=== PATIENT | male | born 1940 | race Caucasian/White ===

== ENCOUNTER 2020-04-25 17:03 | Emergency (ER) | payer MEDICARE, BC ==
[~2020-04-25] VITALS: Ht 175.3 cm; Wt 99.8 kg
[~2020-04-25 17:03] MED LIST: Aspirin EC81 MG; BISHYD2.5 PO; Multiple Vitam1 EAC1 PO; Simvastatin20 MG PO
[2020-04-25 17:33] LABS: BASOPHILS ABSOLUTE AUTO 0.04 K/mm3 (0.00-0.23); BASOPHILS PERCENT AUTO 1 % (0-2); EOSINOPHILS ABSOLUTE AUTO 0.18 K/mm3 (0.00-0.68); EOSINOPHILS PERCENT AUTO 2 % (0-6); Hematocrit 45.9 % (37.0-53.0); Hemoglobin 15.3 g/dL (13.5-17.5); IMMATURE GRAN ABSOLUTE AUTO 0.06 K/mm3 (0.00-0.10); IMMATURE GRAN PERCENT AUTO 1 % (0-1); LYMPHOCYTES ABSOLUTE AUTO 2.15 K/mm3 (0.84-5.20); LYMPHOCYTES PERCENT AUTO 25 % (21-46); MONOCYTES ABSOLUTE AUTO 0.91 K/mm3 (0.16-1.47); MONOCYTES PERCENT AUTO 11 % (4-13); Mean Corpuscular HGB 32.1 pg (26.0-34.0); Mean Corpuscular HGB Conc 33.3 g/dL (31.5-36.5); Mean Corpuscular Volume 96 fL (80-100); Mean Platelet Volume 9.4 fL (9.1-12.4); NEUTROPHILS PERCENT AUTO 61 % (41-73); Platelet Count 266 K/mm3 (150-400); RDW Coefficient Variation 13.1 % (11.7-14.2); RDW Standard Deviation 47.1 fL (35.1-46.3); Red Blood Cell Count 4.77 M/mm3 (4.30-5.90); White Blood Cell Count 8.54 K/mm3 (4.00-11.30)
[2020-04-25 18:01] LABS: Troponin I <0.015 ng/mL (0.000-0.040)
[2020-04-25 18:02] LABS: Alanine Aminotransfer (ALT/SGP 38 U/L (12-78); Albumin, Blood 4.1 g/dL (3.4-5.0); Alk Phos 60 U/L (50-136); Anion Gap 6 mmol/L (6-16); Aspartate Aminotrans (AST/SGOT 22 U/L (12-37); Bilirubin, Total 0.7 mg/dL (0.1-1.0); Blood Urea Nitrogen 17 mg/dL (8-24); CO2, Blood 27 mmol/L (21-32); Calcium, Blood 9.1 mg/dL (8.5-10.1); Chloride, Blood 109 mmol/L (98-108); Creatinine, Blood 1.06 mg/dL (0.60-1.20); Glomerular Filtration Rate >60 (60-); Glucose, Blood 89 mg/dL (70-99); Potassium, Blood 3.9 mmol/L (3.5-5.5); Sodium, Blood 142 mmol/L (136-145); Total Protein, Blood 8.1 g/dL (6.4-8.2)
== END 2020-04-25 18:35 | disposition home or self-care (01) ==
LOC: ER 17:03
PROVIDERS: Physician Assistant
DX: I10 Essential (primary) hypertension (principal); Z88.2 Allergy status to sulfonamides; Z79.899 Other long term (current) drug therapy
CPT/HCPCS: 36415; 71046; 80053; 84484; 85025; 93005; 93010; 99284-25

== ENCOUNTER 2020-08-08 13:19 | Day surgery (SDC) | payer MEDICARE, BC ==
[~2020-08-08] VITALS: Ht 172.7 cm; Wt 96.6 kg
== END 2020-08-08 15:15 | disposition home or self-care (01) ==
LOC: ORSCSDS 13:19
PROVIDERS: Internal Medicine Gastroenterology
PROC: 0DBM8ZX Excision of Descending Colon, Via Natural or Artificial Opening Endoscopic, Diagnostic (ICD-10-PCS; principal; 2020-08-08 14:45)
DX: Z12.11 Encounter for screening for malignant neoplasm of colon (principal); D12.4 Benign neoplasm of descending colon; K57.30 Diverticulosis of large intestine without perforation or abscess without bleeding; K64.8 Other hemorrhoids; Z86.010 Personal history of colon polyps
CPT/HCPCS: 88305; J2704; J7120

== ENCOUNTER 2024-01-25 08:56 | Observation (INO) | payer MEDICARE, BC ==
[~2024-01-25] VITALS: Ht 175.3 cm; Wt 101.1 kg
[2024-01-25] MEDS ORDERED: BISOPROLOL-HCT1 EACH PO (09:24)
[2024-01-25] MEDS ORDERED: LOSARTAN POTASS25 M2 PO (09:24)
[2024-01-25 09:44] LABS: BASOPHILS ABSOLUTE AUTO 0.01 K/mm3 (0.00-0.23); BASOPHILS PERCENT AUTO 0 % (0-2); EOSINOPHILS ABSOLUTE AUTO 0.08 K/mm3 (0.00-0.68); EOSINOPHILS PERCENT AUTO 1 % (0-6); Hematocrit 41.4 % (37.0-53.0); Hemoglobin 14.6 g/dL (13.5-17.5); IMMATURE GRAN ABSOLUTE AUTO 0.05 K/mm3 (0.00-0.10); IMMATURE GRAN PERCENT AUTO 1 % (0-1); LYMPHOCYTES ABSOLUTE AUTO 1.39 K/mm3 (0.84-5.20); LYMPHOCYTES PERCENT AUTO 17 % (21-46); MONOCYTES ABSOLUTE AUTO 0.68 K/mm3 (0.16-1.47); MONOCYTES PERCENT AUTO 8 % (4-13); Mean Corpuscular HGB 32.5 pg (26.0-34.0); Mean Corpuscular HGB Conc 35.3 g/dL (31.5-36.5); Mean Corpuscular Volume 92 fL (80-100); Mean Platelet Volume 9.4 fL (9.1-12.4); NEUTROPHILS ABSOLUTE AUTO 5.85 K/mm3 (1.96-9.15); NEUTROPHILS PERCENT AUTO 73 % (41-73); Platelet Count 240 K/mm3 (150-400); RDW Coefficient Variation 12.9 % (11.7-14.2); RDW Standard Deviation 43.6 fL (35.1-46.3); Red Blood Cell Count 4.49 M/mm3 (4.30-5.90); White Blood Cell Count 8.06 K/mm3 (4.00-11.30)
[2024-01-25 10:01] LABS: Albumin, Blood 3.9 g/dL (3.4-5.0); Bilirubin, Total 1.3 mg/dL (0.1-1.0); Bun/Creatinine Ratio 16.7 (12.0-20.0); Calcium, Blood 8.7 mg/dL (8.5-10.1); Creatinine, Blood 0.96 mg/dL (0.60-1.20); Globulin, Blood 3.9 g/dL (2.2-4.0); Magnesium, Blood 1.8 mg/dL (1.6-2.4); Potassium, Blood 3.2 mmol/L (3.5-5.5); Total Protein, Blood 7.8 g/dL (6.4-8.2)
[2024-01-25] MEDS ORDERED: Potassium Chl 20MEQ/Water100ML 100 ML IV ONE (10:20)
[2024-01-25] MEDS ORDERED: NS 1,000 ML IV SCH (10:25)
[2024-01-25] MEDS ORDERED: FLU VACC TS2024-25(6MOS UP)/PF 45 MCG/0.5 ML SYRINGE IM ONE (13:00)
[2024-01-25] MEDS ORDERED: Ondansetron HCl 2 MG / ML 2ML Vial IV PRN (13:00)
[2024-01-25] MEDS ORDERED: Acetaminophen 325 MG TABLET PO PRN (13:05)
[2024-01-25 15:37] VITALS: BP 176/72
--- NOTE | 2024-01-25 16:37 | NUR ---
ADMISSION NOTE MR NAVARRETE WAS ADMITTED FROM ER TO MEDICAL UNIT AT 1530HRS. HE AMBULATED INTO BED WITH STEADY GAIT. HE IS ORIENTATED TO SELF, PLACE AND SITUATION BUT UNABLE TO TELL ME THE YEAR. HE SAID HE'S BEEN FEELING FORGETFUL FOR ABOUT 5 DAYS. ABLE TO AMSWER MOST QUESTIONS APPROPRIATELY BUT HE SAID HE'S BEEN FORGETTING SOME BASIC THINGS AT HOME. HE SAID HE USUALLY HAS CALIGRAPHY-LIKE PENMANSHIP BUT THAT HIS WRITING IS NOW BARELY LEGIBLE. CHRONIC LEFT FACIAL DROOP, NO WEAKESS TO HANDS OR FEET NOTICED ON EVALUATION. HE SAID HIS STRENGTH FEELS NORMAL AND STRONG. 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 TELEMETRY ON - NSR 60S. HE PASSED THE BEDSIDE SWALLOW EVALUATION WITHOUT PROBLEMS. HE IS UNABLE TO REMEMBER HIS MEDICATIONS, HIS DAUGHTER IS HERE AND SAID SHE WILL CALL WITH HIS MEDICATION LIST ONCE SHE IS HOME. MR NAVARRETE DENIES ANY PAIN. NO SOB. BED LOW, CALL LIGHT IN REACH.
[2024-01-25] MEDS ORDERED: Aspirin 325 MG Tab PO SCH (18:00)
[2024-01-25 19:20] VITALS: BP 164/70
[2024-01-25] MEDS ORDERED: Atorvastatin 40 MG Tab PO SCH (21:00)
[2024-01-26 05:06] VITALS: BP 167/82
[2024-01-26 05:34] LABS: BASOPHILS ABSOLUTE AUTO 0.03 K/mm3 (0.00-0.23); BASOPHILS PERCENT AUTO 0 % (0-2); EOSINOPHILS ABSOLUTE AUTO 0.16 K/mm3 (0.00-0.68); EOSINOPHILS PERCENT AUTO 2 % (0-6); Hematocrit 40.2 % (37.0-53.0); Hemoglobin 13.9 g/dL (13.5-17.5); IMMATURE GRAN ABSOLUTE AUTO 0.06 K/mm3 (0.00-0.10); IMMATURE GRAN PERCENT AUTO 1 % (0-1); LYMPHOCYTES ABSOLUTE AUTO 1.54 K/mm3 (0.84-5.20); LYMPHOCYTES PERCENT AUTO 21 % (21-46); MONOCYTES ABSOLUTE AUTO 0.71 K/mm3 (0.16-1.47); MONOCYTES PERCENT AUTO 10 % (4-13); Mean Corpuscular HGB 32.2 pg (26.0-34.0); Mean Corpuscular HGB Conc 34.6 g/dL (31.5-36.5); Mean Corpuscular Volume 93 fL (80-100); Mean Platelet Volume 9.4 fL (9.1-12.4); NEUTROPHILS ABSOLUTE AUTO 4.72 K/mm3 (1.96-9.15); NEUTROPHILS PERCENT AUTO 66 % (41-73); Platelet Count 230 K/mm3 (150-400); RDW Coefficient Variation 12.8 % (11.7-14.2); Red Blood Cell Count 4.32 M/mm3 (4.30-5.90); White Blood Cell Count 7.22 K/mm3 (4.00-11.30)
--- NOTE | 2024-01-26 05:39 | NUR ---
SHIFT SUMMARY PT RECEPTIVE TO CARE AND INDEPENDANT. ABLE TO AMBULATE TO BATHROOM URINAL. PT TOOK HS MEDICATIONS. ALERT AND ORIENTED TIMES 4. HE DOES HAVE BOUTS WITH MEMORY LOSS AND WAS ADMITTED FOR CVA. PT IS RECEPTIVE TO CARE. PT APPEARED TO SLEEP THROUGH THE NIGHT. TELE NORMAL SINUS MID 70 S. CALL LIGHT WITHIN REACH, RAILS TIMES 2.
[2024-01-26 05:57] LABS: Very Low Density Lipoprot Chol 30 mg/dL (6-32)
[2024-01-26 06:01] LABS: Anion Gap 11 mmol/L (3-11); Blood Urea Nitrogen 16 mg/dL (8-24); Bun/Creatinine Ratio 17.9 (12.0-20.0); CHOL/HDL RATIO 3.7; CO2, Blood 23 mmol/L (21-32); Calcium, Blood 8.6 mg/dL (8.5-10.1); Chloride, Blood 109 mmol/L (98-108); Cholesterol 159 mg/dL (50-200); Creatinine, Blood 0.89 mg/dL (0.60-1.20); Glomerular Filtration Rate 84 (60-); Glucose, Blood 104 mg/dL (70-99); HDL Cholesterol 43 mg/dL (>39); Low Density Lipoprotein Chol 86 mg/dL (0-110); Potassium, Blood 3.2 mmol/L (3.5-5.5); Sodium, Blood 140 mmol/L (136-145); Triglycerides 151 mg/dL (30-160)
[2024-01-26 07:02] VITALS: BP 164/73
[2024-01-26] MEDS ORDERED: Enoxaparin 40 MG/0.4 ML SYR SC SCH (09:00)
[2024-01-26] MEDS ORDERED: HydroCHLOROthiazide 25 mg Tab PO SCH (09:00)
[2024-01-26] MEDS ORDERED: Aspirin 325 MG Tab PO SCH (09:00)
[2024-01-26] MEDS ORDERED: Multivitamins/Minerals TAB PO SCH (09:00)
[2024-01-26] MEDS ORDERED: Losartan Potassium 25 MG Tab PO SCH (09:00)
[2024-01-26] MEDS ORDERED: Metoprolol Succinate 50 MG TABCR PO SCH (09:00)
[2024-01-26 09:33] VITALS: BP 149/73
--- NOTE | 2024-01-26 09:42 | NUR ---
CALL CALL FROM [facility] THAT PT CONVERTED TO AFIB AT 0800HRS WITH HR 110+. PT DENIES HISTORY OF AFIB, HR 90S ON ASSESSMENT, GIVEN AM MEDICATIONS. DR LONG NOTIFIED.
[2024-01-26] MEDS ORDERED: Apixaban 5 MG Tab PO SCH (10:00)
[2024-01-26] MEDS ORDERED: Potassium Chloride 20 MEQ TabCR PO ONE (10:00)
[2024-01-26] MEDS ORDERED: Metoprolol Succinate 50 MG TABCR PO ONE (10:00)
[2024-01-26 10:20] LABS: Magnesium, Blood 1.9 mg/dL (1.6-2.4)
[2024-01-26 10:22] LABS: Thyroid Stimulating Hormone 2.79 uIU/mL (0.360-4.800)
[2024-01-26] MEDS ORDERED: Acetaminophen650 M1 PO (10:59)
[2024-01-26] MEDS ORDERED: ELIQUIS5 M2 PO (10:59)
[2024-01-26] MEDS ORDERED: POTA10T PO (13:39)
--- NOTE | 2024-01-26 14:23 | NUR ---
DISCHARGE NOTE MR NAVARRETE HAS NO CHANGE IN NEURO STATUS. STRONG LIMBS, STEADY GAIT, POOR MEMORY FOR SOME SIMPLE ACTIVITIES AND FORGETS THE DATE. HE AND HIS DAUGHTER VERBALISED UNDERSTANDING OF DISCHARGE INSTRUCTIONS, HIS DAUGHTER PICKED UP THE PRESCRIPTIONS THAT HE NEEDS TO TAKE TODAY. THEY WERE ADVISED THAT MR NAVARRETE DOES NOT DRIVE UNTIL HE HAS BEEN CLEARED BY HIS PCP. IN AFIB ON TELEMETRY THIS MORNING UNTIL CONVERTED BACK TO NSR PER SHOE PULLER. MR NAVARRETE AMBULATED FROM THE MEDICAL UNIT FOR DISCHARGE WITH HIS DAUGHTER AT 1425HRS. NO NEW CONCERS OR QUESTIONS AT TIME OF DISCHARGE. PIV AND TELEMETRY REMOVED.
[2024-01-27] MEDS ORDERED: Metoprolol Succinate 50 MG TABCR PO SCH (09:00)
== END 2024-01-26 14:25 | disposition home or self-care (01) ==
LOC: ER 08:56 → MEDS 08:57 → ENPENDDIS 01-26 14:06 → MEDS 01-26 14:25
PROVIDERS: Internal Medicine; Physician Assistant; ADMIT Internal Medicine
DX: I63.9 Cerebral infarction, unspecified (principal); E87.6 Hypokalemia; I48.91 Unspecified atrial fibrillation; G51.0 Bell's palsy; I12.9 Hypertensive chronic kidney disease with stage 1 through stage 4 chronic kidney disease, or unspecified chronic kidney disease; N18.2 Chronic kidney disease, stage 2 (mild); E78.5 Hyperlipidemia, unspecified; Z66 Do not resuscitate; Z88.2 Allergy status to sulfonamides; Z79.01 Long term (current) use of anticoagulants; Z79.899 Other long term (current) drug therapy
CPT/HCPCS: 36415; 70450; 80048; 80053; 80061; 83036; 83735; 84443; 85025; 93005; 93010; 93306; 93880; 96361; 96365-59; 96366; 97161; 99285-25; A9270; G0378; J3480; J7030

== ENCOUNTER 2025-02-18 12:39 | Day surgery (SDC) | payer MEDICARE, BC ==
[~2025-02-18] VITALS: Ht 172.7 cm; Wt 105.4 kg
[~2025-02-18 12:39] MED LIST changes: +Acetaminophen650 M1 PO; +BISOPROLOL-HCT1 EACH PO; +Balanced Salt Epinephrine Irrigation Solution 500 mL IR SCH; +ELIQUIS5 M2 PO; +LOSARTAN POTASS25 M2 PO; +Moxifloxacin HCL 0.5 MG/0.1 ML 0.4MLSYR LEFTEYE SCH; +NS 500 ML IV ONE; +PHENYLEPHRINE\\TROPICAMIDE\\TETRACAINE OPHTHALMIC DILATING SOLN LEFTEYE PRN; +POTA10T PO; +Povidone-Iodine 450 DROP/30 ML Solution LEFTEYE SCH; +Povidone-Iodine 450 DROP/30 ML Solution ONE; +Tetracaine HCl/Pf 0.5% Opth Soln 4 ml ONE; +Triamcinolone Inj Susp 40 MG / ML 1ML Vial INJ SCH; +Triamcinolone Inj Susp 40 MG / ML 1ML Vial ONE
[2025-02-18] MEDS ORDERED: NS 500 ML IV ONE (13:19)
[2025-02-18] MEDS ORDERED: Midazolam HCl 1MG / ML 2ML Vial ONE (13:41)
[2025-02-18] MEDS ORDERED: Tetracaine HCl 0.5% Opth Soln 15 ml LEFTEYE ONE (13:45)
[2025-02-18 14:08] VITALS: BP 153/68
== END 2025-02-18 14:21 | disposition home or self-care (01) ==
LOC: ORSCSDS 12:39
PROVIDERS: Ophthalmology
PROC: 08RK3JZ Replacement of Left Lens with Synthetic Substitute, Percutaneous Approach (ICD-10-PCS; principal; 2025-02-18 14:30)
DX: H25.812 Combined forms of age-related cataract, left eye (principal); E78.5 Hyperlipidemia, unspecified; G51.0 Bell's palsy; I48.91 Unspecified atrial fibrillation; I12.9 Hypertensive chronic kidney disease with stage 1 through stage 4 chronic kidney disease, or unspecified chronic kidney disease; N18.9 Chronic kidney disease, unspecified; Z86.73 Personal history of transient ischemic attack (TIA), and cerebral infarction without residual deficits; Z79.01 Long term (current) use of anticoagulants; Z79.899 Other long term (current) drug therapy
CPT/HCPCS: J2250; J3301; J7040; V2632

== ENCOUNTER 2025-02-25 11:30 | Day surgery (SDC) | payer MEDICARE, BC ==
[~2025-02-25] VITALS: Ht 172.7 cm; Wt 104.5 kg
[~2025-02-25 11:30] MED LIST changes: -Moxifloxacin HCL 0.5 MG/0.1 ML 0.4MLSYR LEFTEYE SCH; +Moxifloxacin HCL 0.5 MG/0.1 ML 0.4MLSYR RIGHTEYE SCH; -PHENYLEPHRINE\\TROPICAMIDE\\TETRACAINE OPHTHALMIC DILATING SOLN LEFTEYE PRN; +PHENYLEPHRINE\\TROPICAMIDE\\TETRACAINE OPHTHALMIC DILATING SOLN RIGHTEYE PRN; -Povidone-Iodine 450 DROP/30 ML Solution LEFTEYE SCH; +Povidone-Iodine 450 DROP/30 ML Solution RIGHTEYE SCH
[2025-02-25] MEDS ORDERED: NS 500 ML IV ONE (12:24)
[2025-02-25] MEDS ORDERED: FentaNYL Citrate 50 MCG/ML 2 ML Injection ONE (13:00)
[2025-02-25 14:45] VITALS: BP 179/72
== END 2025-02-25 13:55 | disposition home or self-care (01) ==
LOC: ORSCSDS 11:30
PROVIDERS: Ophthalmology
PROC: 08RJ3JZ Replacement of Right Lens with Synthetic Substitute, Percutaneous Approach (ICD-10-PCS; principal; 2025-02-25 13:30)
DX: H25.811 Combined forms of age-related cataract, right eye (principal); Z96.1 Presence of intraocular lens; I10 Essential (primary) hypertension; E78.5 Hyperlipidemia, unspecified; G51.0 Bell's palsy; E66.9 Obesity, unspecified; Z68.34 Body mass index [BMI] 34.0-34.9, adult; Z79.01 Long term (current) use of anticoagulants; Z79.899 Other long term (current) drug therapy
CPT/HCPCS: J2003; J3010; J3301; J7040; V2632